=== PATIENT | female | born 1965 | race Caucasian/White ===

== ENCOUNTER 2021-04-28 06:02 | Inpatient (IN) ==
[2021-04-28] MEDS ORDERED: Ringers Solution, Lactated 1,000 ML IVC SCH ×2 (06:30→10:55)
[2021-04-28] MEDS ORDERED: *HR* Midazolam HCl 2 MG/2 ML VIAL ONE (07:05)
[2021-04-28] MEDS ORDERED: *HR* Propofol 200 MG/20 ML VIAL IVP ONE (07:05)
[2021-04-28] MEDS ORDERED: *HR* FentaNYL (PF) 100 MCG/2 ML VIAL ONE (07:05)
[2021-04-28] MEDS ORDERED: Ondansetron 4 MG/2 ML VIAL ONE (07:06)
[2021-04-28] MEDS ORDERED: *HR* Rocuronium Bromide 50 MG/5 ML VIAL ONE (07:06)
[2021-04-28] MEDS ORDERED: Lidocaine -MPF 2% 2 ML VIAL ONE (07:06)
[2021-04-28] MEDS ORDERED: cefOXitin 2,000 MG in Water for inj. (sterile) 20 ML IVP ONE (07:40)
[2021-04-28] MEDS ORDERED: Scopolamine Patch 1.5 MG PATCH.TD72 TD ONE ×2 (08:13→08:15)
[2021-04-28] MEDS ORDERED: Acetaminophen IV 1,000 MG/100 ML BAG IVPB ONE (08:13)
[2021-04-28] MEDS ORDERED: *HR* HYDROmorphone PF 0.5 MG/0.5 ML SYRINGE IVP PRN (08:15)
[2021-04-28] MEDS ORDERED: Ondansetron 4 MG/2 ML VIAL IVP PRN ×2 (08:15→10:55)
[2021-04-28] MEDS ORDERED: Ketorolac 30 MG/ML VIAL ONE (09:02)
[2021-04-28] MEDS: *HR* FentaNYL (PF) 100 MCG/2 ML VIAL IVP PRN ×2 (10:00→10:09)
[2021-04-28] MEDS ORDERED: Naloxone 0.4 MG/ML INJ IVP PRN (10:55)
[2021-04-28] MEDS ORDERED: Fluticasone Propionate Nasal 50 MCG/SPRAY BOTTLE NS PRN (10:55)
[2021-04-28] MEDS ORDERED: Sennosides 8.6 MG TABLET PO PRN (10:55)
[2021-04-28] MEDS: *HR* OxyCODONE Immed Rel 5 MG TABLET PO PRN ×2 (14:34→21:48)
[2021-04-28] MEDS: Famotidine 20 MG TABLET PO SCH (21:45)
[2021-04-28] MEDS ORDERED: Acetaminophen 325 MG TABLET PO PRN (22:36)
[2021-04-29] MEDS: Ibuprofen 600 MG TABLET PO PRN ×2 (03:19→09:41)
[2021-04-29] MEDS ORDERED: LEVOTHYROXINE PO SCH (06:30)
[2021-04-29] MEDS ORDERED: LIOTHYRONINE PO SCH (06:30)
[2021-04-29 07:31] VITALS: BP 104/61; PULSE 70; TEMP 98.5; O2SAT 96
[2021-04-29] MEDS ORDERED: Cholecalciferol (D-3) 1,000 UNIT (25MCG) TABLET PO SCH (09:00)
[2021-04-29] MEDS: Famotidine 20 MG TABLET PO SCH (09:41)
== END 2021-04-29 11:40 | disposition home or self-care (01) | DRG 743 ==
LOC: SAMDAY 06:02 → 1NENUOBS 10:43
PROVIDERS: ADMIT Student in an Organized Health Care Education/Training Program; ATTEND Student in an Organized Health Care Education/Training Program